=== PATIENT | male | born 2000 | race Caucasian/White ===

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

== ENCOUNTER 2020-07-06 14:21 | Emergency (ER) | payer BC, OTHER ==
[2020-07-06 14:37] VITALS: BP 132/82; PULSE 93; TEMP 98.4; BMI 21.2
[2020-07-06] MEDS ORDERED: DIPHTH,PERTUSS(ACELL),TET 0.5 ML DISP.SYRIN IM ONE ×2 (14:56→14:57)
== END 2020-07-06 17:07 | disposition home or self-care (01) ==
LOC: JER 14:21
PROC: 3E0234Z Introduction of Serum, Toxoid and Vaccine into Muscle, Percutaneous Approach (ICD-10-PCS; principal; 2020-07-06)
DX: S52.592A Other fractures of lower end of left radius, initial encounter for closed fracture (principal); S60.512A Abrasion of left hand, initial encounter; S60.552A Superficial foreign body of left hand, initial encounter; U07.1 COVID-19
CPT/HCPCS: 73110-TC-LT-FY; 73130-TC-LT-FY; 90715; 99284-25; C9803; U0003; U0005